=== PATIENT | female | born 1960 | race Caucasian/White ===

== ENCOUNTER 2019-11-26 13:51 | Inpatient (IN) | payer MEDICAID ==
[~2019-11-26] VITALS: Ht 157.5 cm; Wt 73.3 kg
[2019-11-26] MEDS ORDERED: albuterol 2.5 MG/3 ML nebule NEB ONE (14:05)
[2019-11-26] MEDS ORDERED: methylPREDNISolone sod succ 125mg/2ml vial IV ONE (14:05)
[2019-11-26] MEDS ORDERED: ipratropium/albuterol 3ml nebule NEB ONE (14:05)
[2019-11-26 14:26] LABS: BASOPHILS % (AUTO) 0.4 % (0-1); EOSINOPHILS % (AUTO) 0 % (0-6); HEMATOCRIT 40.1 % (35.0-45.0); HEMOGLOBIN 13.3 g/dl (12.0-16.0); LYMPHOCYTES % (AUTO) 17.8 % (21-51); MEAN CORPUSCULAR HEMOGLOBIN 29.2 PG (27.0-31.0); MEAN CORPUSCULAR HGB CONC 33.3 g/dL (33.0-36.5); MEAN CORPUSCULAR VOLUME 87.8 FL (78-98); MEAN PLATELET VOLUME 9.1 FL (7.4-10.4); MONOCYTES # (AUTO) 0.7 X10'3 (0-0.9); MONOCYTES % (AUTO) 12.2 % (2-12); NEUTROPHILS # (AUTO) 3.9 X10'3 (1.8-7.7); NEUTROPHILS % (AUTO) 69.6 % (42-75); PLATELET COUNT 253 X10'3 (140-440); RED BLOOD COUNT 4.57 X10'6 (4.20-5.60); RED CELL DISTRIBUTION WIDTH 13.3 % (11.5-14.5); WHITE BLOOD COUNT 5.7 X10'3 (4.5-11.0)
[2019-11-26 14:34] LABS: PARTIAL THROMBOPLASTIN TIME 31 SECONDS (22-32)
[2019-11-26 14:36] LABS: ALANINE AMINOTRANSFERASE 40 U/L (12-78); ALBUMIN 3.3 G/DL (3.4-5.0); ALBUMIN/GLOBULIN RATIO 0.8 (1.1-1.5); ALKALINE PHOSPHATASE 74 IU/L (46-116); ANION GAP 5 (8-16); ASPARTATE AMINO TRANSFERASE 33 U/L (10-37); BILIRUBIN,TOTAL 0.5 MG/DL (0.1-1.0); BLOOD UREA NITROGEN 9 MG/DL (7-18); BUN/CREATININE RATIO 11.7 (6.6-38.0); CALCIUM 7.9 MG/DL (8.5-10.1); CHLORIDE 104 MMOL/L (99-107); CREATININE 0.77 MG/DL (0.40-0.90); GLUCOSE 99 MG/DL (70-104); POTASSIUM 4.1 MMOL/L (3.5-5.1); SODIUM 141 MMOL/L (135-145); TOTAL PROTEIN 7.2 G/DL (6.4-8.2); eGFR 76 ML/MIN
[2019-11-26] MEDS ORDERED: MONT10TA21 PO (14:36)
[2019-11-26] MEDS ORDERED: LOSA50TA3 PO (14:36)
[2019-11-26] MEDS ORDERED: ALBU2.5V12 NEB (14:36)
[2019-11-26] MEDS ORDERED: BUDE10.22 INH (14:36)
[2019-11-26] MEDS ORDERED: TIOT18CA3 PO (14:36)
[2019-11-26] MEDS ORDERED: enoxaparin 100mg/ml syringe SUBCUT ONE (15:10)
[2019-11-26] MEDS ORDERED: acetaminophen 325mg tablet PO PRN ×2 (15:40)
[2019-11-26] MEDS ORDERED: HYDROcodone/acetaminophen 10/325mg tab PO PRN (15:40)
[2019-11-26] MEDS ORDERED: magnesium hydroxide 30ml (MOM) UD suspension PO PRN (15:40)
[2019-11-26] MEDS ORDERED: mag hydrox/Alum hydrox/simeth 30ml oral suspension PO PRN (15:40)
[2019-11-26] MEDS ORDERED: morphine 2 MG/ML inj. syringe IV PRN ×2 (15:40)
[2019-11-26] MEDS ORDERED: HYDROcodone/acetaminophen 5mg/325mg tablet PO PRN (15:40)
[2019-11-26] MEDS ORDERED: nitroGLYCERIN 0.4mg SUBLingual tab SL PRN (15:40)
[2019-11-26] MEDS ORDERED: ondansetron/PF 4mg/2ml inj IV PRN (15:40)
[2019-11-26] MEDS ORDERED: BUDE10.2 INH (16:27)
[2019-11-26] MEDS ORDERED: ALBU2.5V13 NEB (16:27)
--- NOTE | 2019-11-26 16:52 | NUR ---
echo at bedside and finished with procedure.
--- NOTE | 2019-11-26 17:12 | NUR ---
Patient given valentín and let her know that we are still waiting on a bed assignment. Also let patient know that her supper tray should be here aroud 6 pm.
[2019-11-26 17:40] LABS: HEMOGLOBIN A1C 6.2 % (4.5-6.2)
--- NOTE | 2019-11-26 18:00 | NUR ---
Patient in room MED 312. I have received report from Abel SOTOMAYOR and had the opportunity to ask questions and assume patient care.
[2019-11-26 22:00] VITALS: BP 149/67
[2019-11-27 02:00] VITALS: BP 118/60
--- NOTE | 2019-11-27 02:21 | NUR ---
Sent page to Mike: PAGER ID: [phone] MESSAGE: [phone] Pt Ray is requesting breathing treatments, she is suffering from a cough, and is on 4 L of O2 [place] 8263
--- NOTE | 2019-11-27 02:25 | NUR ---
Mike ordered Coleman Wallace Q4H PRN
[2019-11-27] MEDS: ipratropium/albuterol 3ml nebule NEB PRN ×2 (02:52→08:09)
[2019-11-27 03:12] LABS: BASOPHILS % (AUTO) 0.3 % (0-1); EOSINOPHILS % (AUTO) 0 % (0-6); HEMOGLOBIN 12.9 g/dl (12.0-16.0); LYMPHOCYTES # (AUTO) 0.5 X10'3 (1.1-4.8); LYMPHOCYTES % (AUTO) 20.8 % (21-51); MEAN CORPUSCULAR HEMOGLOBIN 28.8 PG (27.0-31.0); MEAN CORPUSCULAR HGB CONC 33.1 g/dL (33.0-36.5); MEAN PLATELET VOLUME 9.3 FL (7.4-10.4); MONOCYTES # (AUTO) 0.2 X10'3 (0-0.9); MONOCYTES % (AUTO) 7.2 % (2-12); NEUTROPHILS # (AUTO) 1.8 X10'3 (1.8-7.7); NEUTROPHILS % (AUTO) 71.7 % (42-75); PLATELET COUNT 251 X10'3 (140-440); RED BLOOD COUNT 4.49 X10'6 (4.20-5.60); RED CELL DISTRIBUTION WIDTH 13.5 % (11.5-14.5); WHITE BLOOD COUNT 2.6 X10'3 (4.5-11.0)
[2019-11-27 03:19] LABS: ALBUMIN 3.2 G/DL (3.4-5.0); ANION GAP 8 (8-16); BLOOD UREA NITROGEN 10 MG/DL (7-18); BUN/CREATININE RATIO 14.9 (6.6-38.0); CALCIUM 8.2 MG/DL (8.5-10.1); CHLORIDE 105 MMOL/L (99-107); CHOL/HDL RATIO 2.5 (0.00-4.99); CHOLESTEROL 112 MG/DL (0-200); CREATININE 0.67 MG/DL (0.40-0.90); GLUCOSE 145 MG/DL (70-104); HDL CHOLESTEROL 45 MG/DL (35-60); LDL CHOLESTEROL 57 MG/DL (50-100); POTASSIUM 4.6 MMOL/L (3.5-5.1); SODIUM 142 MMOL/L (135-145); TOTAL CARBON DIOXIDE 29.2 MMOL/L (24-32); TRIGLYCERIDES 52 MG/DL (20-135); eGFR 89 ML/MIN
--- NOTE | 2019-11-27 03:26 | NUR ---
PAGER ID: [phone] MESSAGE: [phone] pt Bell FYI 12hr trop is 0.74, trending down. Thank you. - ACCE [id number]
[2019-11-27] MEDS ORDERED: metoprolol tartrate 12.5mg (1/2 tablet) PO ONE (03:50)
[2019-11-27 06:00] VITALS: BP 125/68
--- NOTE | 2019-11-27 06:02 | NUR ---
Problems reprioritized. Patient report given, questions answered & plan of care reviewed with Marissa SOTOMAYOR.
--- NOTE | 2019-11-27 06:42 | NUR ---
PFTs AND CXR PA/LAT ORDERED PER DR. REYES'S RECOMMENDATIONS.
--- NOTE | 2019-11-27 06:43 | NUR ---
RADIOLOGY CALLED FLOOR - INFORMED THEM THAT PATIENT STILL ASLEEP, WILL PAGE THEM AFTER PATIENT HAS EATEN BREAKFAST.
--- NOTE | 2019-11-27 06:44 | NUR ---
RESPIRATORY PAGED: [phone]: RAMIREZ - PFTs ordered for pre-screen for possible cardiac catheterization w/ Romel.
--- NOTE | 2019-11-27 06:44 | NUR ---
Patient in room MED 312. I have received report from СВЕТЛАНА Jesus and had the opportunity to ask questions and assume patient care.
[2019-11-27 07:11] LABS: TOTAL CELLS COUNTED 100
[2019-11-27 07:12] LABS: PLATELET ESTIMATE NORMAL
--- NOTE | 2019-11-27 07:54 | NUR ---
DR. MILLER PAGED PAGER ID: [phone] MESSAGE: [phone]: RAMIREZ - MED REC waiting for you. patient requesting inhalers. ty nurse Marissa [phone]
[2019-11-27] MEDS: clopidogrel 75mg tablet PO SCH ×2 (08:00→11:46)
[2019-11-27] MEDS: enoxaparin 40mg/0.4ml syringe SQ SCH ×3 (08:00→20:39)
[2019-11-27] MEDS: enoxaparin 30mg/0.3ml syringe SUBCUT SCH ×3 (08:00→20:38)
--- NOTE | 2019-11-27 08:00 | NUR ---
respiratory paged [phone]: RAMIREZ - Requesting treatment. ty
[2019-11-27] MEDS: budesonide 0.5mg/2ml UD nebule IH SCH ×2 (08:24→19:18)
[2019-11-27 08:27] LABS: CHOL/HDL RATIO 2.6 (0.00-4.99); CHOLESTEROL 113 MG/DL (0-200); HDL CHOLESTEROL 44 MG/DL (35-60); LDL CHOLESTEROL 61 MG/DL (50-100); TRIGLYCERIDES 79 MG/DL (20-135)
--- NOTE | 2019-11-27 08:41 | NUR ---
patient refuses pft _ also refuses mouthpiece for svneb tx Addendum: 11/27/19 at 0843 by Brannon Davison RT Amended: Links added.
[2019-11-27] MEDS: aspirin 81mg tablet.DR PO SCH (08:42)
--- NOTE | 2019-11-27 08:57 | NUR ---
patient informed RT that she remembers having a pulmonary function test about 5 years ago and was unable to even complete the exam last time. patient states that she knows she wouldn't be able to complete the test this admit either. will inform MDs and continue to monitor
[2019-11-27] MEDS ORDERED: albuterol 2.5 MG/3 ML nebule NEB SCH (09:00)
[2019-11-27] MEDS ORDERED: ipratropium 0.5 MG/2.5ML nebule IH SCH ×2 (09:00)
[2019-11-27] MEDS: montelukast 10mg tablet PO SCH (09:45)
[2019-11-27] MEDS: losartan 50mg tablet PO SCH (09:45)
--- NOTE | 2019-11-27 09:53 | NUR ---
RADIOLOGY PAGED: [phone]: JAMES - READY FOR 2 VIEW CXR
[2019-11-27] MEDS ORDERED: pneumococcal 23-VAL P-sac vacc 25 mcg/0.5ml vial IMVAC ONE (10:00)
--- NOTE | 2019-11-27 10:50 | NUR ---
RADIOLOGY PAGED AGAIN: 312: RAMIREZ - 2 VIEW CXR ORDERED. TY
--- NOTE | 2019-11-27 11:07 | NUR ---
OFF FLOOR FOR CXR
[2019-11-27] MEDS: furosemide 20 MG/2 ML vial IV SCH ×2 (11:47→20:36)
[2019-11-27] MEDS ORDERED: ipratropium/albuterol 3ml nebule NEB SCH ×2 (12:00→15:00)
[2019-11-27 15:00] VITALS: BP 113/76
[2019-11-27] MEDS: ipratropium/albuterol 3ml nebule NEB SCH ×2 (16:01→19:18)
[2019-11-27 18:00] VITALS: BP 138/69
--- NOTE | 2019-11-27 18:00 | NUR ---
Patient in room MED 312. I have received report from ENMANUEL SOTOMAYOR and had the opportunity to ask questions and assume patient care.
--- NOTE | 2019-11-27 19:22 | NUR ---
Problems reprioritized. Patient report given, questions answered & plan of care reviewed with СВЕТЛАНА Jesus.
[2019-11-27] MEDS ORDERED: budesonide 0.5mg/2ml UD nebule IH SCH (20:00)
[2019-11-27] MEDS ORDERED: metoprolol tartrate 12.5mg (1/2 tablet) PO SCH (20:00)
[2019-11-27 22:00] VITALS: BP 123/67
--- NOTE | 2019-11-27 22:00 | NUR ---
SENT A PAGE TO RT: 312 PT JAMES COMPLAINING OF LOUD RATTLING SOUND IN HER LUNGS, AND CAN'T FALL ASLEEP DUE TO IT. SHE WAS WANTING A BREATHING TREATMENT WITH SOMETHING DIFFERENT BECAUSE THE CURRENT STUFF ISN'T WORKING. JUST AN FYI. THANK YOU SO MUCH!
[2019-11-28 02:00] VITALS: BP 132/50
--- NOTE | 2019-11-28 03:40 | NUR ---
SENT PAGE TO RT: 312 PT JAMES COMPLAINING OF SOB, REQUESTING BREATHING TREATMENT. THANK YOU
[2019-11-28] MEDS: ipratropium/albuterol 3ml nebule NEB SCH ×3 (03:52→12:32)
[2019-11-28 06:00] VITALS: BP 109/53
--- NOTE | 2019-11-28 06:08 | NUR ---
Problems reprioritized. Patient report given, questions answered & plan of care reviewed with BHAKTI SOTOMAYOR.
[2019-11-28 06:17] LABS: BASOPHILS % (AUTO) 0.3 % (0-1); EOSINOPHILS % (AUTO) 0.3 % (0-6); HEMATOCRIT 38.4 % (35.0-45.0); HEMOGLOBIN 13.2 g/dl (12.0-16.0); LYMPHOCYTES # (AUTO) 1.7 X10'3 (1.1-4.8); LYMPHOCYTES % (AUTO) 27.5 % (21-51); MEAN CORPUSCULAR HEMOGLOBIN 29.6 PG (27.0-31.0); MEAN CORPUSCULAR HGB CONC 34.4 g/dL (33.0-36.5); MEAN PLATELET VOLUME 9.7 FL (7.4-10.4); MONOCYTES # (AUTO) 0.7 X10'3 (0-0.9); MONOCYTES % (AUTO) 11.7 % (2-12); NEUTROPHILS # (AUTO) 3.6 X10'3 (1.8-7.7); NEUTROPHILS % (AUTO) 60.2 % (42-75); PLATELET COUNT 278 X10'3 (140-440); RED BLOOD COUNT 4.46 X10'6 (4.20-5.60); RED CELL DISTRIBUTION WIDTH 13.4 % (11.5-14.5)
--- NOTE | 2019-11-28 06:28 | NUR ---
Patient in room MED 312. I have received report from СВЕТЛАНА Kulkarni and had the opportunity to ask questions and assume patient care.
[2019-11-28 06:31] LABS: ALBUMIN 3.3 G/DL (3.4-5.0); ANION GAP 7 (8-16); BLOOD UREA NITROGEN 15 MG/DL (7-18); BUN/CREATININE RATIO 19.5 (6.6-38.0); CALCIUM 8.2 MG/DL (8.5-10.1); CHLORIDE 100 MMOL/L (99-107); CREATININE 0.77 MG/DL (0.40-0.90); GLUCOSE 78 MG/DL (70-104); POTASSIUM 3.5 MMOL/L (3.5-5.1); SODIUM 141 MMOL/L (135-145); TOTAL CARBON DIOXIDE 34.5 MMOL/L (24-32); eGFR 76 ML/MIN
[2019-11-28 07:42] LABS: MAGNESIUM 1.9 MG/DL (1.5-2.4)
[2019-11-28] MEDS: budesonide 0.5mg/2ml UD nebule IH SCH (08:32)
[2019-11-28] MEDS ORDERED: CLOP75TA35 PO (09:44)
[2019-11-28] MEDS ORDERED: METO-539 PO (09:44)
[2019-11-28] MEDS ORDERED: ASPI-1071 PO (09:44)
[2019-11-28] MEDS ORDERED: FURO-150 PO (09:44)
[2019-11-28] MEDS ORDERED: metoprolol succinate 25mg (24-HOUR) SR. Tablet PO SCH (09:45)
[2019-11-28] MEDS: losartan 50mg tablet PO SCH (09:50)
[2019-11-28] MEDS: montelukast 10mg tablet PO SCH (09:50)
[2019-11-28] MEDS: furosemide 20 MG/2 ML vial IV SCH (09:51)
[2019-11-28] MEDS: clopidogrel 75mg tablet PO SCH (09:51)
[2019-11-28] MEDS: aspirin 81mg tablet.DR PO SCH (09:51)
[2019-11-28 11:00] VITALS: BP 146/74
--- NOTE | 2019-11-28 13:30 | NUR ---
reviewed all discharge instructions,including medications faxed to [facility] in [place],need for f/u appt ,s/l dc'd from [facility] ,site clear dc'd home with all belonging
== END 2019-11-28 13:30 | disposition home or self-care (01) | DRG 190 ==
LOC: ER 13:53 → ED HOLD 15:43 → MED 3N 19:25
PROVIDERS: ADMIT Internal Medicine; ATTEND Internal Medicine
DX: I21.4 Non-ST elevation (NSTEMI) myocardial infarction (principal); I50.21 Acute systolic (congestive) heart failure; J96.11 Chronic respiratory failure with hypoxia; Z99.81 Dependence on supplemental oxygen; I11.0 Hypertensive heart disease with heart failure; J44.1 Chronic obstructive pulmonary disease with (acute) exacerbation; I20.9 Angina pectoris, unspecified; F17.210 Nicotine dependence, cigarettes, uncomplicated; Z60.2 Problems related to living alone; Z79.02 Long term (current) use of antithrombotics/antiplatelets; Z79.82 Long term (current) use of aspirin; Z79.899 Other long term (current) drug therapy; Z88.5 Allergy status to narcotic agent; Z98.51 Tubal ligation status; Z88.1 Allergy status to other antibiotic agents
CPT/HCPCS: 36415; 71045; 71046; 80048; 80053; 80061; 83036; 83735; 83880; 84484; 85025; 85610; 85730; 87081; 93005; 93306; 94640; 94760; G0378; J1650; J1940; J2930; J7626